=== PATIENT | male | born 1980 | race American Indian/Alaskan Native ===

== ENCOUNTER 2018-06-02 10:34 | Emergency (ER) | payer BC ==
[2018-06-02 10:40] VITALS: BP 142/88
--- NOTE | 2018-06-02 11:48 | Emergency Department Report ---
Minor Respiratory - HPI Chief Complaint: Upper Respiratory Infection Stated Complaint: SINUS HEADACHE/EAR PAIN/DIZZY Time Seen by Provider: 06/02/18 11:18 Duration: 1 week Pain Location: Facial Severity: moderate Minor Respiratory: Yes Rhinorrhea, Yes Able to Tolerate Fluids, Yes Cough, No Sore Throat, No Ear Pain, No Sick Contacts, No Hemoptysis, No Chest Pain, No Sita rtness of Breath, No Fever Other History: Patient states that his sinuses have been bothering him. He's had several episodes where he also is getting dizzy. She has taken ov [id number] meds without relief. ED Review of Systems ROS: Stated complaint: SINUS HEADACHE/EAR PAIN/DIZZY Other details as noted in HPI Comment: All other systems reviewed and negative ED Past Medical Hx - Past Medical History Previous Medical History?: No - Surgical History Additional Surgical History: left wrist - Social History Smoking Status: Current Every Day Smoker Substance Use Type: Marijuana - Medications Home Medications: Home Medications Medication Instructions Recorded Confirmed Last Taken Type Amoxicillin/Potassium Clav 1 each PO BID #14 tablet 06/02/18 Unknown Rx [Augmentin 875-125 Tablet] Fluticasone [Flonase] 1 spray NS QDAY #1 bottle 06/02/18 Unknown Rx HYDROcodone/APAP 5-325 [[place] 1 each PO Q4HR PRN #12 tablet 06/02/18 Unknown Rx 5/325] predniSONE [Deltasone] 20 mg PO QDAY #5 tab 06/02/18 Unknown Rx Minor Respiratory Exam - Exam General: Vital signs noted. No distress. Alert and acting appropriately. HEENT: Yes Moist Mucous Membranes, Yes Frontal Tenderness, No Pharyngeal Erythema, No Pharyngeal Exudates, No Rhinorrhea, No Conjuctival Injection, No Maxillary Tenderness Ear: Neither TM Bulge, Neither TM Erythema, Neither EAC Pain, Neither EAC Discharge Neck: Yes Supple, No Adenopathy Lungs: Yes Good Air Exchange, No Wheezes, No Ronchi, No Stridor, No Cough, No Labored Respirations, No Retractions, No Use of Accessory Muscles, No Other Abnormal Lung Sounds Heart: Yes Regular, No Murmur Abdomen: Yes Normal Bowel Sounds, No Tenderness, No Peritoneal Signs Skin: No Rash, No Edema Neurologic: Alert and oriented, no deficits. Musculoskeletal: Unremarkable. ED Course Vital Signs 06/02/18 10:38 Temperature 98 F Pulse Rate 54 L Respiratory 18 Rate Blood Pressure 142/88 O2 Sat by Pulse 100 Oximetry ED Medical Decision Making - Medical Decision Making She'll be treated for acute sinusitis and be discharged home. Critical care attestation.: If time is entered above; I have spent that time in minutes in the direct care of this critically ill patient, excluding procedure time. ED Disposition Clinical Impression: Acute sinusitis Qualifiers: Sinusitis location: unspecified location Recurrence: non-recurrent Qualified Code(s): J01.90 - Acute sinusitis, unspecified Disposition: TO HOME OR SELFCARE Is pt being admited?: No Does the pt Need Aspirin: No Condition: Stable Instructions: Acute Bacterial Rhinosinusitis (ED) Referrals: PRIMARY CARE, [Primary Care Provider] - 3-5 Days Time of Disposition: 11:50
[2018-06-02] MEDS ORDERED: IBUPROFEN PO ONE (11:53)
[2018-06-02] MEDS ORDERED: IBUPROFEN ONE (11:53)
== END 2018-06-02 12:02 | disposition home or self-care (01) ==
LOC: ED 10:34
DX: J01.90 Acute sinusitis, unspecified (principal); F17.200 Nicotine dependence, unspecified, uncomplicated; F12.10 Cannabis abuse, uncomplicated
CPT/HCPCS: 99282

== ENCOUNTER 2018-07-31 21:58 | Emergency (ER) | payer BC ==
[2018-07-31] MEDS ORDERED: NACL 0.9% 1000 ML 1,000 ML IV ONE (22:02)
--- NOTE | 2018-07-31 22:19 | Emergency Department Report ---
Chief Complaint: Abdominal Pain Stated Complaint: ABD PAIN Time Seen by Provider: 07/31/18 22:14 - HPI History of Present Illness: This is a 37 y.o. male that presents with diffuse abdominal pain x 2 hours. Reports some nausea without vomiting and lightheadedness Denies vomiting and diarrhea. - ROS Review of Systems: nausea and diffuse abdominal pain. MSE screening note: Focused history and physical exam performed. Due to findings the following was ordered: labs and CT of abdomen ED Disposition for MSE Condition: Stable
[2018-07-31 22:43] LABS: Hematocrit 41.8 % (35.5-45.6); Hemoglobin 14.2 gm/dl (11.8-15.2); Mean Corpuscular HGB Conc 34 % (32-34); Mean Corpuscular Volume 95 fl (84-94); Platelet Count 178 K/mm3 (140-440); Red Blood Count 4.38 M/mm3 (3.65-5.03); Red Cell Distribution Width 13.3 % (13.2-15.2)
[2018-07-31 23:04] LABS: Alanine Aminotransferase 18 units/L (7-56); Albumin 4.5 g/dL (3.9-5); BUN/Creatinine Ratio 7; Blood Urea Nitrogen 8 mg/dL (9-20); Calcium 8.8 mg/dL (8.4-10.2); Hemolysis Index 9
--- NOTE | 2018-08-01 00:14 | Cat Scan Report ---
PROCEDURE: CT abdomen and pelvis without contrast. TECHNIQUE: Computerized axial tomography of the abdomen and pelvis was performed without intravenous contrast. This study is performed without intravascular contrast material and its sensitivity for ab dominal and pelvic pathology, including neoplasms, inflammation, abscess, free fluid, thrombosis, art erial dissection and infarction, is reduced compared with a contrast enhanced study. CT DOSE LENGTH PRODUCT: 1329.14 mGycm HISTORY: Abdominal pain. COMPARISONS: None. FINDINGS: The lung bases are clear. There are no pleural effusions. The heart size is normal. The liver, pancre as and spleen are grossly normal. There are small calcifications in the spleen consistent with previo us granulomatous disease. The gallbladder is present. There is no biliary dilatation. The adrenal gla nds are not enlarged. Both kidneys appear normal in size and configuration. The abdominal aorta has a normal caliber. There is no retroperitoneal adenopathy. The unopacified gastrointestinal tract is un remarkable. A normal appendix is visible. There is a small bladder calculus near the left ureterovesi jose martin junction. This may have been recently passed from the left ureter. This calculus measures 3.7 mm in diameter. The seminal vesicles and prostate appear normal. The regional skeleton appears intact. IMPRESSION: Small bladder calculus. Previous granulomatous disease in the spleen. No evidence of acu te disease in the abdomen or pelvis. This document is electronically signed by Cornelio Heredia MD., August 01 2018 12:12:04 AM ET
[2018-08-01] MEDS ORDERED: TORADOL IM ONE (00:25)
[2018-08-01 00:43] LABS: Basophils % (Manual) 0 % (0.0-1.8); Total Cells Counted 100
[2018-08-01 00:44] LABS: Platelet Estimate Consistent w Auto
[2018-08-01 03:09] LABS: Bilirubin,Urine NEG (Negative); Blood,Urine LG (Negative); Color,Urine Yellow (Yellow); Mucus,Urine 1+ /HPF; Protein,Urine <15 mg/dL mg/dL (Negative); Urobilinogen,Urine < 2.0 mg/dL (<2.0)
--- NOTE | 2018-08-01 03:53 | Emergency Department Report ---
ED General Adult HPI - General Chief complaint: Abdominal Pain Stated complaint: ABD PAIN Time Seen by Provider: 07/31/18 22:14 Source: patient Mode of arrival: Ambulatory Limitations: No Limitations - History of Present Illness Initial comments: 37-year-old male smoker she presents with a complaint of abdominal pain. Patient states his pain nicely originated in his left testicle radiating up to his left lower quadrant and left upper quadrant of his abdominal region. Patient states he received Toradol and abdominal pain is a 4 out of 10 here. patient denies any prior episodes of similar type pain. Patient to go Mr. Viera prior to him to emergency department. Patient states that he had an episode of vomiting. Patient denies any hematemesis. Patient denies any hematochezia. Patient denies any sick contacts. Severity scale (0 -10): 6 - Related Data Previous Rx's Medication Instructions Recorded Last Taken Type Amoxicillin/Potassium Clav 1 each PO BID #14 tablet 06/02/18 Unknown Rx [Augmentin 875-125 Tablet] Fluticasone [Flonase] 1 spray NS QDAY #1 bottle 06/02/18 Unknown Rx HYDROcodone/APAP 5-325 [[place] 1 each PO Q4HR PRN #12 tablet 06/02/18 Unknown Rx 5/325] predniSONE [Deltasone] 20 mg PO QDAY #5 tab 06/02/18 Unknown Rx Famotidine [Pepcid] 20 mg PO BID #30 tablet 08/01/18 Unknown Rx Tramadol HCl [Ultram] 50 mg PO Q6HR #20 tablet 08/01/18 Unknown Rx Allergies Allergy/AdvReac Type Severity Reaction Status Date / Time No Known Allergies Allergy Unverified 06/02/18 10:38 ED Review of Systems ROS: Stated complaint: ABD PAIN Other details as noted in HPI Constitutional: denies: chills, fever Eyes: denies: eye pain, eye discharge, vision change ENT: denies: ear pain, throat pain Respiratory: denies: cough, shortness of breath, wheezing Cardiovascular: denies: chest pain, palpitations Endocrine: no symptoms reported Gastrointestinal: abdominal pain Genitourinary: denies: urgency, dysuria Musculoskeletal: denies: back pain, joint swelling, arthralgia Skin: denies: rash, lesions Neurological: denies: headache, weakness, paresthesias Psychiatric: denies: anxiety, depression Hematological/Lymphatic: denies: easy bleeding, easy bruising ED Past Medical Hx - Past Medical History Previous Medical History?: No - Surgical History Past Surgical History?: Yes Additional Surgical History: left wrist - Social History Smoking Status: Never Smoker Substance Use Type: None - Medications Home Medications: Home Medications Medication Instructions Recorded Confirmed Last Taken Type Amoxicillin/Potassium Clav 1 each PO BID #14 tablet 06/02/18 Unknown Rx [Augmentin 875-125 Tablet] Fluticasone [Flonase] 1 spray NS QDAY #1 bottle 06/02/18 Unknown Rx HYDROcodone/APAP 5-325 [[place] 1 each PO Q4HR PRN #12 tablet 06/02/18 Unknown Rx 5/325] predniSONE [Deltasone] 20 mg PO QDAY #5 tab 06/02/18 Unknown Rx Famotidine [Pepcid] 20 mg PO BID #30 tablet 08/01/18 Unknown Rx Tramadol HCl [Ultram] 50 mg PO Q6HR #20 tablet 08/01/18 Unknown Rx ED Physical Exam - General Limitations: No Limitations General appearance: alert, other (mildly uncomfortable) - Head Head exam: Present: atraumatic, normocephalic - Eye Eye exam: Present: normal appearance - ENT ENT exam: Present: mucous membranes dry - Neck Neck exam: Present: normal inspection - Respiratory Respiratory exam: Present: normal lung sounds bilaterally. Absent: respiratory distress - Cardiovascular Cardiovascular Exam: Present: normal rhythm, bradycardia. Absent: systolic murmur, diastolic murmur, rubs, gallop - GI/Abdominal GI/Abdominal exam: Present: soft, normal bowel sounds. Absent: tenderness, guarding, rebound - Rectal Rectal exam: Present: deferred - exam: Present: normal inspection. Absent: testicular tenderness - Extremities Exam Extremities exam: Present: normal inspection - Back Exam Back exam: Present: normal inspection - Neurological Exam Neurological exam: Present: alert, oriented X3 - Psychiatric Psychiatric exam: Present: normal affect, normal mood - Skin Skin exam: Present: warm, dry, intact, normal color. Absent: rash ED Course Vital Signs 08/01/18 02:47 Pulse Rate 48 L Respiratory 16 Rate Blood Pressure 140/70 [Right] O2 Sat by Pulse 100 Oximetry ED Medical Decision Making - Lab Data Result diagrams: 07/31/18 22:12 07/31/18 22:12 - Medical Decision Making Patient received Toradol therapy while here in the emergency department. Patient has had improvement of pain. Patient had normal testicular ultrasound. Patient's currently sleeping comfortably and in no acute distress. Patient be discharged to follow-up with palpation. - Differential Diagnosis testicular torsion; pancreatitis; electrolyte abnormality; anemia Critical care attestation.: If time is entered above; I have spent that time in minutes in the direct care of this critically ill patient, excluding procedure time. ED Disposition Clinical Impression: Testicular pain, unspecified Disposition: - TO HOME OR SELFCARE Is pt being admited?: No Does the pt Need Aspirin: No Condition: Stable Instructions: Testicle Pain (ED), Abdominal Pain (ED) Prescriptions: Famotidine [Pepcid] 20 mg PO BID #30 tablet Tramadol HCl [Ultram] 50 mg PO Q6HR #20 tablet Referrals: ELEONORA GARCIA MD [Primary Care Provider] - 3-5 Days Time of Disposition: 05:40 Print Language: SLOVENIAN
--- NOTE | 2018-08-01 05:12 | Ultrasound Report ---
PROCEDURE: US TESTICULAR DOPPLER COMP TECHNIQUE: Routine sonographic evaluation was obtained of the scrotum with Doppler interrogation of the testicles. HISTORY: testicular pain COMPARISONS: None FINDINGS: The right testicle is normal in size contour blood flow and echotexture measuring 3.9 x 2.0 x 3.3. Th e right epididymis appears normal. There is no evidence of hydrocele. The left testicle is normal in size contour blood flow and echotexture measuring 3.2 x 2.2 x 3.3 cm. The left epididymis appears normal. There is no evidence of hydrocele. IMPRESSION: Normal exam. No evidence of testicular torsion or neoplasia.. This document is electronically signed by Conor Ponce MD., August 01 2018 05:10:20 AM ET
[2018-08-01 06:10] VITALS: BP 140/76
== END 2018-08-01 06:10 | disposition home or self-care (01) ==
LOC: ED 21:58
DX: N50.812 Left testicular pain (principal)
CPT/HCPCS: 36415; 74176; 80053; 81001; 83690; 85007; 85025; 93975; 96372; 99284; J1885